=== PATIENT | female | born 1950 | race Caucasian/White ===

== ENCOUNTER → 2017-11-13 | Outpatient (CLI) | payer MEDICARE, OTHER ==
--- NOTE | 2017-11-13 12:54 | RAD ---
EXAM: Chest, 2 views. HISTORY: Cough. COMPARISON: 11/12/2014. FINDINGS: 2 views of the chest are obtained. There is no infiltrate, pleural effusion or pneumothorax. The heart is normal in size. IMPRESSION: No acute pulmonary finding. Electronically signed by: Vonda Alonso MD (11/13/2017 12:51 PM) [email or web address]
== END | disposition home or self-care (01) ==
LOC: PMG 11:12
PROVIDERS: ATTEND Physician Assistant Medical
DX: J44.9 Chronic obstructive pulmonary disease, unspecified (principal)
CPT/HCPCS: 71046

== ENCOUNTER → 2018-12-11 | Outpatient (CLI) | payer MEDICARE, OTHER ==
--- NOTE | 2018-12-11 09:04 | RAD ---
Carotid doppler ultrasound History: Syncope, dizziness, hypertension, previous smoker Multiple grayscale, color, and duplex spectral analysis waveform sonographic images were acquired of the carotid, subclavian, and vertebral arteries. Comparison: None Findings: RIGHT: PSV cm/sec EDV cm/sec Common carotid artery 111 28 Maximal internal carotid artery 94 22 External carotid artery 117 Vertebral artery 43 ICA/CCA ratio 0.84 LEFT: PSV cm/sec EDV cm/sec Common carotid artery 107 22 Maximum internal carotid artery 96 35 External carotid artery 85 Vertebral artery 58 ICA/CCA ratio 0.89 Velocities used to determine stenosis are known to correlate with NASCET angiographic criteria. There is antegrade flow in the bilateral vertebral arteries. No significant stenosis is demonstrated on grayscale or color images. There is eccentric mild hyperechoic plaque of the distal common carotid arteries and carotid bifurcations extending into the internal carotid arteries bilaterally. Impression: 1. There is no evidence of a hemodynamically significant stenosis. Electronically signed by: Enrike Perez MD (12/11/2018 9:01 AM) [id number]
--- NOTE | 2018-12-11 18:02 | RAD ---
CHEST PA LATERAL History: COPD Comparison: November 13, 2017 Findings: 2 views of the chest are submitted. There is no infiltrate, pneumothorax, or effusion. Pericardial cardiac silhouette is within normal limits in size. There is suspected emphysema. There is some atherosclerotic calcification near aortic arch. Impression: 1. No acute radiographic abnormality is identified. CT is more sensitive for detection of pulmonary nodules. Electronically signed by: Enrike Perez MD (12/11/2018 5:59 PM) [id number]
== END | disposition home or self-care (01) ==
LOC: US 07:48
PROVIDERS: ATTEND Physician Assistant Medical
DX: J44.9 Chronic obstructive pulmonary disease, unspecified (principal); I70.0 Atherosclerosis of aorta; I65.23 Occlusion and stenosis of bilateral carotid arteries; I10 Essential (primary) hypertension; Z87.891 Personal history of nicotine dependence
CPT/HCPCS: 71046; 93880

== ENCOUNTER → 2019-02-06 | Outpatient (CLI) | payer MEDICARE, OTHER ==
[2019-02-06 13:00] LABS: BASO % 1 % (0-3); CALCIUM 8.6 mg/dL (8.5-10.1); CREATININE 0.9 mg/dL (0.6-1.0); EOS # 0.2 x10^3/uL (0.0-0.7); EOS % 3 % (0-3); GFR 61.9; HEMATOCRIT 39.4 % (36.0-47.0); HEMOGLOBIN 13.3 g/dL (12.0-15.5); LYMPH # 1.5 x10^3/uL (1.0-4.8); LYMPH % 28 % (24-48); MEAN CORPUSCULAR HEMOGLOBIN 31 pg (25-35); MEAN CORPUSCULAR HGB CONC 34 g/dL (31-37); MEAN CORPUSCULAR VOLUME 92 fL (79-100); MONO # 0.6 x10^3/uL (0.0-1.1); MONO % 11 % (0-9); NEUT # 3.1 x10^3uL (1.8-7.7); NEUT % 58 % (31-73); PLATELET COUNT 218 x10^3/uL (140-400); POTASSIUM 3.6 mmol/L (3.5-5.1); RED BLOOD COUNT 4.29 x10^6/uL (3.50-5.40); RED CELL DISTRIBUTION WIDTH 13.5 % (11.5-14.5); WHITE BLOOD COUNT 5.4 x10^3/uL (4.0-11.0)
[2019-02-06 16:29] LABS: BACTERIA,URINE 0 /HPF (0-FEW); BILIRUBIN,URINE NEG (NEG); CLARITY,URINE HAZY; COLOR,URINE YELLOW; GLUCOSE,URINE NEG (NEG); NITRITE,URINE NEG (NEG); SQUAMOUS EPITHELIAL CELL,UR MANY /LPF; UROBILINOGEN,URINE 0.2 mg/dL (0.2 mg/dL)
== END | disposition home or self-care (01) ==
LOC: LAB 12:20
PROVIDERS: ATTEND Internal Medicine Cardiovascular Disease
DX: I44.30 Unspecified atrioventricular block (principal); J44.9 Chronic obstructive pulmonary disease, unspecified; Z87.891 Personal history of nicotine dependence
CPT/HCPCS: 36415; 80048; 81001; 85025; 85610; 85730